=== PATIENT | male | born 1995 | race Caucasian/White ===

== ENCOUNTER 2023-09-16 15:30 | Emergency (ER) | payer MEDICAID, OTHER ==
[~2023-09-16] VITALS: Ht 180.3 cm; Wt 131.3 kg
[2023-09-16] MEDS: HYDROcodone-ACET 10/325MG TAB PO ONE (19:08)
[2023-09-16] MEDS: IBUPROFEN 800 MG TAB PO ONE (19:10)
[2023-09-16 19:47] VITALS: BP 119/73; PULSE 86; RESP 20; TEMP 98; O2SAT 98
[2023-09-16] MEDS ORDERED: IBUP-1455 PO (19:48)
[2023-09-16] MEDS ORDERED: ACE3T PO (19:48)
== END 2023-09-16 19:59 | disposition home or self-care (01) ==
LOC: ER 15:30
DX: S52.502A Unspecified fracture of the lower end of left radius, initial encounter for closed fracture (principal); R07.81 Pleurodynia; R42 Dizziness and giddiness; V86.56XA Driver of dirt bike or motor/cross bike injured in nontraffic accident, initial encounter; Y93.89 Activity, other specified; Y92.89 Other specified places as the place of occurrence of the external cause; Y99.8 Other external cause status
CPT/HCPCS: 29125; 70450; 71101; 73110